=== PATIENT | female | born 1970 | race Caucasian/White ===

== ENCOUNTER → 2023-10-06 08:55 | Outpatient (REF) | payer BC, SELFPAY | LOC: HWRAD 08:55 | PROVIDERS: ATTENDING PHYSICIAN Obstetrics & Gynecology; FAMILY PHYSICIAN Family Medicine | DX: R10.2 Pelvic and perineal pain (principal) | CPT/HCPCS: 76830; 76856 ==

== ENCOUNTER → 2024-05-12 14:00 | Outpatient (REF) | payer BC, SELFPAY | LOC: CLAB 14:00 | PROVIDERS: ATTENDING PHYSICIAN Otolaryngology | DX: J32.9 Chronic sinusitis, unspecified (principal) | CPT/HCPCS: 87070; 87205 ==

== ENCOUNTER 2024-06-06 06:21 | Day surgery (SDC) | payer BC, SELFPAY | END 2024-06-06 10:03 | disposition home or self-care (01) | LOC: GI 06:21 | PROVIDERS: ATTENDING PHYSICIAN Internal Medicine | DX: R10.13 Epigastric pain (principal); K22.2 Esophageal obstruction; K20.90 Esophagitis, unspecified without bleeding; K29.50 Unspecified chronic gastritis without bleeding | CPT/HCPCS: 43239; 88305; 88342 ==

== ENCOUNTER → 2024-07-04 19:32 | Outpatient (REF) | payer BC, SELFPAY | LOC: WDC 19:32 | PROVIDERS: ATTENDING PHYSICIAN Obstetrics & Gynecology; FAMILY PHYSICIAN Family Medicine | DX: Z12.31 Encounter for screening mammogram for malignant neoplasm of breast (principal) | CPT/HCPCS: 77063; 77067 ==

== ENCOUNTER → 2024-07-30 07:02 | Outpatient (REF) | payer BC, SELFPAY ==
[2024-07-30 08:36] LABS: HDL Cholesterol 55 mg/dl; LDL Cholesterol, Calculated 166 mg/dl; Total Cholesterol 235 mg/dl (50-199); Triglyceride 71 mg/dl (10-149); Very Low Density Lipoprotein 14 mg/dl (0-30)
== END ==
LOC: REG 07:02
PROVIDERS: ATTENDING PHYSICIAN Student in an Organized Health Care Education/Training Program
DX: Z00.01 Encounter for general adult medical examination with abnormal findings (principal); Z13.220 Encounter for screening for lipoid disorders
CPT/HCPCS: 36415; 80061

== ENCOUNTER 2024-11-21 21:47 | Emergency (ER) | payer BC, SELFPAY ==
[2024-11-21 21:51] VITALS: BP 150/115
[2024-11-21 22:12] LABS: Urine Character Clear (Clear)
[2024-11-21 22:14] LABS: Hematocrit 41.3 % (37.0-47.0); Hemoglobin 13.8 g/dL (12.0-16.0); Mean Corp Hgb Conc. 33.4 g/dL (33.0-37.0); Mean Corpuscular Volume 92.2 fL (81.0-99.0); Nucleated Red Blood Cells % 0 %; Platelet Count 257 10^3/uL (130-400); Red Cell Dist. Width 12.7 % (11.5-14.5)
[2024-11-21 22:21] LABS: Urine Red Blood Cell 0-2 /HPF (0-2)
[2024-11-21 22:29] LABS: ALT (SGPT) 32 U/L (0-35); AST (SGOT) 24 U/L (14-36); Albumin 4.6 g/dl (3.5-5.0); Alkaline Phosphatase 78 U/L (38-126); Blood Urea Nitrogen 20 mg/dl (7-17); Calcium 9.9 mg/dl (8.4-10.2); Carbon Dioxide 29 mmol/L (22-30); Chloride 105 mmol/L (98-107); Glucose 95 mg/dl (70-99); Lipase 140 U/L (23-300); Potassium 4.1 mmol/L (3.5-5.1); Sodium 138 mmol/L (135-145); Total Protein 7.8 g/dl (6.3-8.2); eGFR > 60.00
[2024-11-22 00:46] VITALS: BMI 31.9
--- NOTE | 2024-11-22 00:51 | ED.GENMED ---
History of Present Illness
General
Chief Complaint: Abdominal Symptoms
Source: patient
Exam Limitations: none
Time Seen by Provider: 11/22/24 00:41
Nursing documentation reviewed up to this point in time: agreed with
History of Present Illness
History of Present Illness:
Note:
CHIEF COMPLAINT(S)
Abdominal pain
HISTORY OF PRESENT ILLNESS
The patient is a 53-year-old female with a pmh of asthma, uterine fibroids s/p hysterectomy, who presents today with abdominal discomfort that has been ongoing for the past couple of weeks worse today. She reports feeling bloated, experiencing back
pain, and having a significant lack of appetite. Initially, she did not notice any specific localization of the pain, but upon self-examination, she felt discomfort on the right side of her abdomen. The pain has not been acute, and she recalls a
previous incident of kidney stone removal that required surgical intervention during .
The patient describes episodes of feeling extremely uncomfortable after eating, leading her to unintentionally go long stretches without food. She acknowledges the sensation as 'out of the norm' for her usual dietary habits. Additionally, she
experiences urinary frequency with some urgency, noting occasions where she feels the urge to go but only passes a minimal amount of urine, without any associated burning sensation.
She has noted the pain occasionally radiating to her back and reports intermittent fullness and discomfort without any upper abdominal pain extending into the chest. Bowel habits have been sporadic, with episodes of constipation, which she manages
with a stool softener, typically related to dietary intake.
The patient rates the abdominal pain as constant, particularly noted since the evening of the visit.
She denies chest pain, shortness of breath, nausea, vomiting, fevers, chills.
REVIEW OF SYSTEMS
See HPI
PHYSICAL EXAM
General: Patient is well appearing and in no acute distress; non-toxic
Skin: Warm and dry, no rashes or lesions
Head: Normocephalic, atraumatic
Eyes: Sclera non-icteric. EOMs intact.
Cardiac: Regular rate and rhythm, no murmurs
Peripheral Vascular: No lower extremity swelling or edema
Pulm: Normal respiratory effort, no wheezes, rales, or rhonchi
Abdomen: RLQ tenderness to palpation no guarding, normoactive bowel sounds
Neuro: CN II-XII intact, no focal neurologic deficits.
Psychiatric: Appropriate mood and affect.
PLAN
-CT ab and pelvis
-CBC, CMP, urinlaysis
DIFFERENTIAL DIAGNOSIS
The Differential Diagnosis includes, in no particular order and is not limited to:
1. Appendicitis
2. Urinary tract infection
3. Nephrolithiasis
4. Diverticulitis
5. Gallbladder disease
6. Irritable Bowel Syndrome
7. Gastritis
8. Pancreatitis
9. Hepatic pathology
10. Gynecological conditions such as ovarian cysts or pelvic inflammatory disease
CHART REVIEW
-reviewed endoscopy from 06/06/24 patient seen for endoscopy was found to have esophagitis
MDM/DISPOSITION
The patient is a 53-year-old female with a pmh of asthma, uterine fibroids s/p hysterectomy, who presents today with abdominal discomfort that has been ongoing for the past couple of weeks worse today. She reports feeling bloated, experiencing back
pain, and having a significant lack of appetite. She is particularly concerned about appendicitis. On PE, she is well appearing, in no acute distress, her abdomen is soft but she does have some tenderness in the RLQ. Her blood work and urinalysis is
unremarkable. Her CT scan is normal. Suspect pain may be related to constipation vs potential IBS. Recommended follow up with her GI doctor. Strict return precautions discussed.
Phy Exam
Physical Exam
Physical Exam:
see hpi
Course
Orders/Labs/Results
Orders:
Orders
11/21/24 22:03
Complete Blood Count/With Diff Urgent
Comprehensive Metabolic Panel Urgent
Lipase Urgent
Urinalysis Reflex To Culture Urgent
Date Specimen was Collected: 11/21/24
Time Specimen was Collected: 21:54
Urine Microscopic Reflex Cult Urgent
Urine Culture Urgent
DARSHAN Source: U
Specimen Description:
Date Specimen was Collected: 11/21/24
Time Specimen was Collected: 21:54
11/22/24 01:01
CT Abd/pelvis W Iv Cont Urgent
Comment:
Reason For Exam: right lower quadrant pain
Abnormal Lab Results
11/21/24
22:03
Absolute Monos (auto) 0.7 H 10^3/uL
(0.1-0.6)
Monocytes % 9.5 H %
(1.7-9.3)
BUN 20 H mg/dl
(7-17)
Creatinine 0.5 L mg/dL
(0.6-1.0)
Leukocyte Esterase Rfl 1+ A
(Negative)
Urine Bacteria (Reflex) Few A
(Negative)
11/21/24 22:03
11/21/24 22:03
Vital Signs
Initial and Last Documented VS:
Initial Vital Signs
Temp Pulse Resp BP Pulse Ox
97.4 F 106 18 150/115 98
11/21/24 21:51 11/21/24 21:51 11/21/24 21:51 11/21/24 21:51 11/21/24 21:51
Last Documented Vital Signs
Temp Pulse Resp BP Pulse Ox
97.4 F 88 18 131/78 96
11/21/24 21:51 11/22/24 06:25 11/22/24 06:25 11/22/24 06:28 11/22/24 06:25
*Pulse Oximetry
SaO2: 98
Patient hypoxic: no
*Critical Care Note
Total Time (30-74mins, 75-104mins- exclusive of procedures): Not Applicable
ED Attending Note
-
Portions of this chart may have been created with voice recognition software.� Occasional wrong word or��sound alike� substitutions may have occurred due to the inherent limitations of voice recognition software.
Discharge Plan
Departure
Patient Disposition: Home (Routine Discharge)
Date of Disposition: 11/22/24
Time of Disposition: 06:13
Patient with high blood pressure during this ER visit?: Yes
Condition: Good
Discharge Problem:
Abdominal pain
Instructions: Abdominal Pain, BLOOD PRESSURE
Prescriptions:
No Action
cyanocobalamin (vitamin B-12) 1,000 MCG tablet
1,000 mcg PO DAILY
loratadine-pseudoephedrine [Allergy Relief D-24hr] 10-240 mg tablet extended release 24 hr
1 tab.sr PO DAILY
albuterol sulfate 18 GM HFA aerosol inhaler
18 gm IH PRN PRN (Reason: asthma)
budesonide-formoterol [Symbicort] 1 PUFF HFA aerosol inhaler
2 puff inhalation BID PRN (Reason: allergies)
Multivitamin:
1 tab PO DAILY
Vitamin D3:
2,000 units PO DAILY
docusate sodium 100 MG capsule
100 mg PO BID PRN (Reason: constipation) 0RF
simethicone [Gas Relief 80 (simethicone)] 80 MG tablet,chewable
80 mg PO Q6HPRN PRN (Reason: gas distention) 0RF
oxycodone 5 MG tablet
5 mg PO Q4HPRN PRN (Reason: severe pain when tolerating PO) Qty: 20 0RF
Referrals:
Neva Schwartz MD [Active, Gastroenterology] - Call in 1-3 days for appt
Jocelyne Perdomo DO [Family Provider, Family Practice]
Activity Restrictions/Additional Instructions:
As discussed, your blood work is unremarkable. Your urinalysis is normal. Your CAT scan does not show any acute findings. Please call your contract paralegal for follow-up appointment.
PLEASE RETURN TO THE EMERGENCY DEPARTMENT SHOULD YOU DEVELOP FEVERS OR CHILLS, CHEST PAIN, SHORTNESS OF BREATH, RECTAL BLEEDING, VOMITING BLOOD, DIZZINESS, LIGHTHEADEDNESS, OR ANY OTHER SIGNS OR SYMPTOMS REASON YOU.
Interventions
Interventions:
*Risk Screen - Suicide Last Done: 11/21/24 21:53
*General Assessment Last Done: 11/21/24 21:53
*Neglect/Abuse Screening Last Done: 11/21/24 21:53
*ED- Fall Risk Assessment Last Done: 11/22/24 00:48
*ED COVID-19 Vaccine History Last Done: 11/22/24 00:48
*Nursing Disposition Last Done: 11/22/24 06:25
[facility] Assessment Last Done: 11/22/24 00:48
Discharge Date and Time
Discharge Date/Time: 11/22/24 06:25
Print Language: FINNISH
[2024-11-22 01:00] VITALS: BP 133/80
[2024-11-22 02:00] VITALS: BP 133/86
[2024-11-22 03:00] VITALS: BP 134/71
[2024-11-22 04:13] VITALS: BP 131/76
[2024-11-22 06:28] VITALS: BP 131/78
== END 2024-11-22 06:25 | disposition home or self-care (01) ==
LOC: EMR 21:47
PROVIDERS: Emergency Medicine; EMERGENCY PHYSICIAN Student in an Organized Health Care Education/Training Program; FAMILY PHYSICIAN Family Medicine
DX: R10.10 Upper abdominal pain, unspecified (principal); R14.0 Abdominal distension (gaseous); M54.9 Dorsalgia, unspecified; R35.0 Frequency of micturition; R39.15 Urgency of urination; J45.909 Unspecified asthma, uncomplicated; R03.0 Elevated blood-pressure reading, without diagnosis of hypertension; Z87.442 Personal history of urinary calculi; Z88.6 Allergy status to analgesic agent; Z88.1 Allergy status to other antibiotic agents; Z88.3 Allergy status to other anti-infective agents; Z88.0 Allergy status to penicillin; Z88.2 Allergy status to sulfonamides; Z91.048 Other nonmedicinal substance allergy status
CPT/HCPCS: 99284; 74177; 80053; 81003; 81015; 83690; 85025; 87086; Q9967